=== PATIENT | male | born 1960 | race Caucasian/White ===

== ENCOUNTER 2022-12-29 09:56 | Outpatient (CLI) | payer BC | END 2022-12-29 09:57 | disposition home or self-care (01) | LOC: CSHMRI 09:56 | PROVIDERS: ATTEND Neurological Surgery | DX: M47.22 Other spondylosis with radiculopathy, cervical region (principal); M47.12 Other spondylosis with myelopathy, cervical region; M47.816 Spondylosis without myelopathy or radiculopathy, lumbar region; M54.50 Low back pain, unspecified | CPT/HCPCS: 72052; 72110; 72141; 72148 ==

== ENCOUNTER 2023-05-04 09:19 | Outpatient (CLI) | payer BC | END 2023-05-04 09:20 | disposition home or self-care (01) | LOC: CSHMRI 09:19 | PROVIDERS: ATTEND Physician Assistant | DX: M25.811 Other specified joint disorders, right shoulder (principal); M25.511 Pain in right shoulder; S46.811A Strain of other muscles, fascia and tendons at shoulder and upper arm level, right arm, initial encounter; M19.011 Primary osteoarthritis, right shoulder; M24.211 Disorder of ligament, right shoulder ==